=== PATIENT | female | born 1970 | race Caucasian/White ===

== ENCOUNTER → 2021-10-11 | Outpatient (CLI) | payer BC | LOC: MAMO 14:47 | DX: Z12.31 Encounter for screening mammogram for malignant neoplasm of breast (principal) | CPT/HCPCS: 77063; 77067 ==

== ENCOUNTER → 2021-10-11 | Outpatient (CLI) | payer BC | LOC: EXRD 05-10 08:30 → MAMO 05-10 08:30 → EXRD 13:46 | DX: Z78.0 Asymptomatic menopausal state (principal); M85.89 Other specified disorders of bone density and structure, multiple sites | CPT/HCPCS: 77080 ==